=== PATIENT | male | born 1980 | race Caucasian/White ===

== ENCOUNTER 2020-03-08 07:45 | Outpatient (CLI) | payer OTHER ==
[~2020-03-08 07:45] MED LIST: HYZAAR 50-12.1 UDTAB PO
== END 2020-03-08 11:55 | disposition home or self-care (01) ==
LOC: LAB 07:45
PROVIDERS: ATTEND Anesthesiology
DX: E11.9 Type 2 diabetes mellitus without complications (principal)

== ENCOUNTER 2020-04-07 06:24 | Outpatient (CLI) | payer OTHER | END 2020-04-07 06:47 | disposition home or self-care (01) | LOC: LAB 06:24 | PROVIDERS: ATTEND Internal Medicine Endocrinology, Diabetes & Metabolism | DX: E11.65 Type 2 diabetes mellitus with hyperglycemia (principal); E78.2 Mixed hyperlipidemia; E55.9 Vitamin D deficiency, unspecified; N39.0 Urinary tract infection, site not specified ==

== ENCOUNTER → 2020-05-26 09:36 | Outpatient (CLI) | payer OTHER | END | disposition home or self-care (01) | LOC: LAB 09:36 | PROVIDERS: ATTEND Anesthesiology | DX: U07.1 COVID-19 (principal) ==

== ENCOUNTER → 2020-06-17 06:39 | Outpatient (CLI) | payer OTHER | END | disposition home or self-care (01) | LOC: LAB 06:39 | PROVIDERS: ATTEND Internal Medicine Endocrinology, Diabetes & Metabolism | DX: E11.65 Type 2 diabetes mellitus with hyperglycemia (principal); E78.2 Mixed hyperlipidemia ==

== ENCOUNTER 2020-10-17 06:27 | Outpatient (CLI) | payer OTHER | END 2020-10-17 06:33 | disposition home or self-care (01) | LOC: LAB 06:27 | PROVIDERS: ATTEND Internal Medicine Endocrinology, Diabetes & Metabolism | DX: D64.89 Other specified anemias (principal); E78.2 Mixed hyperlipidemia; E11.65 Type 2 diabetes mellitus with hyperglycemia ==

== ENCOUNTER → 2020-12-08 08:54 | Outpatient (CLI) | payer OTHER | END | disposition home or self-care (01) | LOC: LAB 08:54 | PROVIDERS: ATTEND Anesthesiology | DX: Z03.818 Encounter for observation for suspected exposure to other biological agents ruled out (principal) ==

== ENCOUNTER → 2021-01-19 06:41 | Outpatient (CLI) | payer OTHER | END | disposition home or self-care (01) | LOC: LAB 06:41 | PROVIDERS: ATTEND Internal Medicine Endocrinology, Diabetes & Metabolism | DX: E11.65 Type 2 diabetes mellitus with hyperglycemia (principal); E78.2 Mixed hyperlipidemia ==

== ENCOUNTER → 2021-02-06 12:13 | Outpatient (CLI) | payer OTHER | END | disposition home or self-care (01) | LOC: LAB 12:13 | PROVIDERS: ATTEND Anesthesiology | DX: Z03.818 Encounter for observation for suspected exposure to other biological agents ruled out (principal) ==

== ENCOUNTER 2021-04-27 06:43 | Outpatient (CLI) | payer OTHER | END 2021-04-27 06:45 | disposition home or self-care (01) | LOC: LAB 06:43 | PROVIDERS: ATTEND Internal Medicine Endocrinology, Diabetes & Metabolism | DX: D64.89 Other specified anemias (principal); E78.2 Mixed hyperlipidemia; E11.65 Type 2 diabetes mellitus with hyperglycemia ==

== ENCOUNTER 2021-05-09 10:58 | Emergency (ER) | payer OTHER ==
[~2021-05-09] VITALS: Ht 180.3 cm; Wt 132.4 kg
[2021-05-09] MEDS ORDERED: HYZAAR 100-251 EACH PO (11:21)
[2021-05-09] MEDS ORDERED: FORTAMET1000 MG PO (11:22)
[2021-05-09] MEDS ORDERED: JARDIANCE25 MG PO (11:22)
[2021-05-09] MEDS ORDERED: MUPIROCIN15 GM TP (11:24)
== END 2021-05-09 13:55 | disposition home or self-care (01) ==
LOC: ER 10:58
DX: L73.9 Follicular disorder, unspecified (principal); Z72.0 Tobacco use; E11.9 Type 2 diabetes mellitus without complications; I10 Essential (primary) hypertension; Z79.84 Long term (current) use of oral hypoglycemic drugs

== ENCOUNTER 2021-10-01 11:56 | Emergency (ER) | payer OTHER ==
[~2021-10-01] VITALS: Ht 180.3 cm; Wt 131.5 kg
[~2021-10-01 11:56] MED LIST changes: +FORTAMET1000 MG PO; +HYZAAR 100-251 EACH PO; +JARDIANCE25 MG PO; +MUPIROCIN15 GM TP
[2021-10-01] MEDS ORDERED: CRESTOR10 MG PO (12:16)
== END 2021-10-01 15:02 | disposition home or self-care (01) ==
LOC: ER 11:56
DX: R07.89 Other chest pain (principal)

== ENCOUNTER 2022-06-20 22:24 | Emergency (ER) | payer OTHER ==
[~2022-06-20] VITALS: Ht 180.3 cm; Wt 142.9 kg
[~2022-06-20 22:24] MED LIST changes: +CRESTOR10 MG PO
[2022-06-20] MEDS ORDERED: HUMALOG100 UNIT/2 SQ (22:41)
[2022-06-20] MEDS ORDERED: CEPHALEXIN500 MG PO (23:47)
[2022-06-20] MEDS ORDERED: ATHLETIC FOOT C30 GM TOP (23:47)
== END 2022-06-21 00:13 | disposition home or self-care (01) ==
LOC: ER 22:24
DX: B35.3 Tinea pedis (principal); L30.4 Erythema intertrigo

== ENCOUNTER 2022-06-22 22:50 | Inpatient (IN) | payer OTHER ==
[~2022-06-22] VITALS: Ht 180.3 cm; Wt 142.9 kg
[~2022-06-22 22:50] MED LIST changes: +ATHLETIC FOOT C30 GM TOP; +CEPHALEXIN500 MG PO; +HUMALOG100 UNIT/2 SQ
== END 2022-06-26 13:31 | disposition home or self-care (01) | DRG 603 ==
LOC: ER 22:50 → MEDJ 06-23 18:51
PROVIDERS: ADMIT Internal Medicine; ATTEND Internal Medicine
PROC: B54CZZZ Ultrasonography of Left Lower Extremity Veins (ICD-10-PCS; 2022-06-24)
PROC: 0H9NXZZ Drainage of Left Foot Skin, External Approach (ICD-10-PCS; principal; 2022-06-25)
DX: L03.116 Cellulitis of left lower limb (principal); I10 Essential (primary) hypertension; E11.9 Type 2 diabetes mellitus without complications; Z79.4 Long term (current) use of insulin; Z20.822 Contact with and (suspected) exposure to COVID-19

== ENCOUNTER 2022-07-03 07:05 | Outpatient (CLI) | payer OTHER | END 2022-07-03 07:06 | disposition home or self-care (01) | LOC: LAB 07:05 | DX: I10 Essential (primary) hypertension (principal) ==

== ENCOUNTER 2022-08-16 08:31 | Outpatient (CLI) | payer OTHER | END 2022-08-16 08:34 | disposition home or self-care (01) | LOC: LAB 08:31 | PROVIDERS: ATTEND Internal Medicine | DX: E78.9 Disorder of lipoprotein metabolism, unspecified (principal); E11.9 Type 2 diabetes mellitus without complications; E55.9 Vitamin D deficiency, unspecified; I10 Essential (primary) hypertension ==

== ENCOUNTER 2022-08-28 07:20 | Outpatient (CLI) | payer OTHER | END 2022-08-28 07:26 | disposition home or self-care (01) | LOC: LAB 07:20 | PROVIDERS: ATTEND Internal Medicine | DX: U07.1 COVID-19 (principal); B34.1 Enterovirus infection, unspecified ==

== ENCOUNTER 2022-08-30 07:05 | Outpatient (CLI) | payer OTHER | END 2022-08-30 07:06 | disposition home or self-care (01) | LOC: NUCLEAR 07:05 | PROVIDERS: ATTEND Internal Medicine | DX: I10 Essential (primary) hypertension (principal); E78.2 Mixed hyperlipidemia; E11.9 Type 2 diabetes mellitus without complications; E66.01 Morbid (severe) obesity due to excess calories; Z82.49 Family history of ischemic heart disease and other diseases of the circulatory system | CPT/HCPCS: 78452; 93017; A9500 ==

== ENCOUNTER 2022-09-25 07:18 | Outpatient (CLI) | payer OTHER | END 2022-09-25 07:19 | disposition home or self-care (01) | LOC: LAB 07:18 | PROVIDERS: ATTEND Internal Medicine | DX: E78.5 Hyperlipidemia, unspecified (principal); E03.8 Other specified hypothyroidism; E26.9 Hyperaldosteronism, unspecified; E55.9 Vitamin D deficiency, unspecified; E24.0 Pituitary-dependent Cushing's disease; I10 Essential (primary) hypertension ==

== ENCOUNTER 2023-01-17 06:26 | Outpatient (CLI) | payer OTHER | END 2023-01-17 06:27 | disposition home or self-care (01) | LOC: LAB 06:26 | PROVIDERS: ATTEND Internal Medicine | DX: E78.9 Disorder of lipoprotein metabolism, unspecified (principal); E11.9 Type 2 diabetes mellitus without complications; E55.9 Vitamin D deficiency, unspecified; I10 Essential (primary) hypertension; Z13.220 Encounter for screening for lipoid disorders ==

== ENCOUNTER → 2023-06-20 08:03 | Outpatient (CLI) | payer OTHER ==
[2023-06-20 09:09] LABS: HEMATOCRIT 42.3 % (39.0-48.0); HEMOGLOBIN 13.8 g/dL (13-16.00); MEAN CELL VOLUME 79.2 fL (80.0-100.00); MEAN CORPUSCULAR HEMOGLOBIN 25.8 pg (27.00-32.0); MEAN CORPUSCULAR HGB CONC 32.5 g/dl (32.0-36.0); PLATELET COUNT 220 K/uL (150-450); RED BLOOD COUNT 5.33 M/uL (4.00-6.00); RED CELL DISTRIBUTION WIDTH 14.6 % (11.5-14.5)
[2023-06-20 09:27] LABS: ERYTHROCYTE SEDIMENTATION RATE 12 mm/hr
[2023-06-20 09:43] LABS: URINE APPEARANCE Clear; URINE BILIRRUBIN Negative (NEGATIVE); URINE BLOOD Negative; URINE COLOR Yellow; URINE GLUCOSE Negative (NEGATIVE); URINE LEUKOCYTE Negative; URINE NITRATE Negative; URINE PROTEIN Negative (NEGATIVE); URINE UROBILINOGEN 0.2 E.U./dl
[2023-06-20 09:48] LABS: URINE EPITHELIAL CELLS 1.5 uL (0.0-38.8)
[2023-06-20 10:05] LABS: ALBUMIN 3.9 gm/dL (3.4-5.0); ALKALINE PHOSPHATASE 48 U/L (50-136); ALT/SGPT 26 U/L (12-78); ANION GAP 10 (10.0-20.0); AST/SGOT 11 U/L (15-37); BILIRUBIN TOTAL 0.38 mg/dL (0.3-1.2); BLOOD UREA NITROGEN 18 mg/dL (7-18); BUN CREA RATIO 14 (7.0-25.0); CALCIUM 9.1 mg/dL (8.5-10.1); CARBON DIOXIDE 31 mEq/L (21-32); CHLORIDE 104 mmol/L (98-107); CHOL HDL RATIO 3.6 (0-5.0); CHOLESTEROL 146 mg/dL (0-200); CREATININE SERUM 1.25 mg/dL (0.70-1.30); FREE TRIODOTIRONINE 2.59 pg/ml (2.18-3.98); GFR 63.65; GLOBULINA 3.5 G/DL (2.4-3.5); GLUCOSE FASTING 145 mg/dL (65-100); HDL 41 mg/dl (40-60); LDL 83 mg/dl (0-130); OSMOLALITY SERUM 286 MOSM/KG (275-295); POTASSIUM 3.62 mEq/L (3.5-5.1); SODIUM 141 mmol/L (136-145); T4 TOTAL 6.44 UG/DL (4.5-12.1); TOTAL PROTEIN 7.4 gm/dL (6.4-8.2); TRIGLYCERIDES 108 mg/dL (0-150); VLDL 21 (0-39)
[2023-06-20 10:10] LABS: URINE BACTERIA 2.5 uL (0.0-1933); URINE RBC 0.4 uL (0.0-20.8); URINE WBC 0.7 uL (0.0-23.2)
[2023-06-20 10:30] LABS: C-REACTIVE PROTEIN < 0.29 MG/DL (0.00-0.29)
== END | disposition home or self-care (01) ==
LOC: LAB 08:03
PROVIDERS: ATTEND Internal Medicine
DX: E78.9 Disorder of lipoprotein metabolism, unspecified (principal); E11.9 Type 2 diabetes mellitus without complications; I10 Essential (primary) hypertension; E04.1 Nontoxic single thyroid nodule

== ENCOUNTER 2023-08-29 06:50 | Outpatient (CLI) | payer OTHER ==
[2023-08-29 08:55] LABS: HEMATOCRIT 42.4 % (39.0-48.0); MEAN CELL VOLUME 78.1 fL (80.0-100.00); MEAN CORPUSCULAR HEMOGLOBIN 25.8 pg (27.00-32.0); MEAN CORPUSCULAR HGB CONC 33.1 g/dl (32.0-36.0); PLATELET COUNT 218 K/uL (150-450); RED BLOOD COUNT 5.42 M/uL (4.00-6.00); RED CELL DISTRIBUTION WIDTH 14.3 % (11.5-14.5)
[2023-08-29 09:36] LABS: ALBUMIN 3.9 gm/dL (3.4-5.0); BILIRUBIN TOTAL 0.41 mg/dL (0.3-1.2); CALCIUM 9.6 mg/dL (8.5-10.1); CHOL HDL RATIO 4.2 (0-5.0); CREATININE SERUM 1.31 mg/dL (0.70-1.30); GFR 60.3; GLOBULINA 3.4 G/DL (2.4-3.5); POTASSIUM 3.95 mEq/L (3.5-5.1); TOTAL PROTEIN 7.3 gm/dL (6.4-8.2); TSH 3.39 uIU/mL (0.358-3.74)
== END 2023-08-29 06:52 | disposition home or self-care (01) ==
LOC: LAB 06:50
PROVIDERS: ATTEND Internal Medicine
DX: D64.9 Anemia, unspecified (principal); R10.9 Unspecified abdominal pain; E03.9 Hypothyroidism, unspecified; E78.5 Hyperlipidemia, unspecified; E11.9 Type 2 diabetes mellitus without complications; R73.09 Other abnormal glucose; I10 Essential (primary) hypertension

== ENCOUNTER 2023-11-05 07:06 | Outpatient (CLI) | payer OTHER ==
[2023-11-05 09:16] LABS: PH,URINE 5.5 (5.0-8.0); URINE APPEARANCE Clear; URINE BILIRRUBIN Negative (NEGATIVE); URINE BLOOD Negative; URINE COLOR Yellow; URINE GLUCOSE Negative (NEGATIVE); URINE LEUKOCYTE Negative; URINE NITRATE Negative; URINE PROTEIN Trace (NEGATIVE); URINE UROBILINOGEN 0.2 E.U./dl
[2023-11-05 09:19] LABS: URINE BACTERIA 6.2 uL (0.0-1933)
[2023-11-05 09:21] LABS: URINE RBC 1.1 uL (0.0-20.8); URINE WBC 0.3 uL (0.0-23.2)
[2023-11-05 09:40] LABS: HEMATOCRIT 39.8 % (39.0-48.0); HEMOGLOBIN 13.4 g/dL (13-16.00); MEAN CELL VOLUME 78.3 fL (80.0-100.00); MEAN CORPUSCULAR HEMOGLOBIN 26.3 pg (27.00-32.0); MEAN CORPUSCULAR HGB CONC 33.6 g/dl (32.0-36.0); PLATELET COUNT 213 K/uL (150-450); RED BLOOD COUNT 5.09 M/uL (4.00-6.00); RED CELL DISTRIBUTION WIDTH 14.6 % (11.5-14.5)
[2023-11-05 10:48] LABS: ALBUMIN 3.6 gm/dL (3.4-5.0); BILIRUBIN TOTAL 0.41 mg/dL (0.3-1.2); CALCIUM 9.5 mg/dL (8.5-10.1); CHOL HDL RATIO 4.1 (0-5.0); CREATININE SERUM 1.09 mg/dL (0.70-1.30); GFR 74.55; GLOBULINA 3.3 G/DL (2.4-3.5); POTASSIUM 4.23 mEq/L (3.5-5.1); TOTAL PROTEIN 6.9 gm/dL (6.4-8.2); TSH 2.88 uIU/mL (0.358-3.74)
== END 2023-11-05 07:07 | disposition home or self-care (01) ==
LOC: LAB 07:06
PROVIDERS: ATTEND Internal Medicine
DX: E11.65 Type 2 diabetes mellitus with hyperglycemia (principal); E03.8 Other specified hypothyroidism

== ENCOUNTER 2024-08-20 06:35 | Outpatient (CLI) | payer OTHER ==
[2024-08-20 08:59] LABS: PH,URINE 6.5 (5.0-8.0); URINE APPEARANCE Clear; URINE BILIRRUBIN Negative (NEGATIVE); URINE BLOOD Negative; URINE COLOR Yellow; URINE KETONE Negative (NEGATIVE); URINE LEUKOCYTE Negative; URINE NITRATE Negative; URINE PROTEIN Negative (NEGATIVE); URINE UROBILINOGEN 0.2 E.U./dl
[2024-08-20 09:04] LABS: URINE EPITHELIAL CELLS 1.7 uL (0.0-38.8); URINE WBC 4.2 uL (0.0-23.2)
[2024-08-20 09:10] LABS: URINE BACTERIA 3.6 uL (0.0-1933); URINE GLUCOSE 100 MG/DL (NEGATIVE); URINE RBC 0.4 uL (0.0-20.8)
[2024-08-20 09:30] LABS: HEMATOCRIT 39.5 % (39.0-48.0); HEMOGLOBIN 13.2 g/dL (13-16.00); MEAN CELL VOLUME 77.2 fL (80.0-100.00); MEAN CORPUSCULAR HEMOGLOBIN 25.7 pg (27.00-32.0); MEAN CORPUSCULAR HGB CONC 33.4 g/dl (32.0-36.0); PLATELET COUNT 223 K/uL (150-450); RED BLOOD COUNT 5.12 M/uL (4.00-6.00); RED CELL DISTRIBUTION WIDTH 14.6 % (11.5-14.5)
[2024-08-20 09:45] LABS: ERYTHROCYTE SEDIMENTATION RATE 30 mm/hr
[2024-08-20 10:40] LABS: ALBUMIN 3.8 gm/dL (3.4-5.0); BILIRUBIN TOTAL 0.49 mg/dL (0.3-1.2); CALCIUM 9.6 mg/dL (8.5-10.1); CHOL HDL RATIO 4.1 (0-5.0); CREATININE SERUM 1.14 mg/dL (0.70-1.30); GFR 70.44; GLOBULINA 3.6 G/DL (2.4-3.5); POTASSIUM 3.92 mEq/L (3.5-5.1); T4 TOTAL 7.78 UG/DL (4.5-12.1); TOTAL PROTEIN 7.4 gm/dL (6.4-8.2); TSH 2.85 uIU/mL (0.358-3.74)
[2024-08-20 11:10] LABS: C-REACTIVE PROTEIN 0.65 MG/DL (0.00-0.29)
== END 2024-08-20 14:43 | disposition home or self-care (01) ==
LOC: LAB 06:35
PROVIDERS: ATTEND Internal Medicine
DX: E78.9 Disorder of lipoprotein metabolism, unspecified (principal); E11.9 Type 2 diabetes mellitus without complications; E55.9 Vitamin D deficiency, unspecified; I10 Essential (primary) hypertension; E04.1 Nontoxic single thyroid nodule; Z12.5 Encounter for screening for malignant neoplasm of prostate